=== PATIENT | male | born 1965 | race Caucasian/White ===

== ENCOUNTER 2021-08-13 23:09 | Emergency (ER) | END 2021-08-13 23:28 | disposition left against medical advice (07) | LOC: M ED 23:09 | DX: Z53.21 Procedure and treatment not carried out due to patient leaving prior to being seen by health care provider (principal) ==

== ENCOUNTER 2021-09-08 09:46 | Emergency (ER) | payer MEDICARE, MEDICAID ==
[~2021-09-08] VITALS: Ht 182.9 cm; Wt 72.3 kg
[2021-09-08 09:47] VITALS: BP 174/132
[2021-09-08] MEDS ORDERED: KETOROLAC 30 MG/ML 1ML VIAL IV ONE (11:10)
[2021-09-08 11:30] LABS: BASO # 0.1 10^3/uL (0.0-0.2); BASO % 0.8 % (0.0-1.0); EOS # 0.3 10^3/uL (0.0-0.5); EOS % 3.6 % (0.0-3.0); HEMATOCRIT 46.1 % (42.0-52.0); HEMOGLOBIN 16.2 g/dl (13.5-17.5); LYMPH % 24.4 % (24.0-44.0); MEAN CORPUSCULAR HEMOGLOBIN 36.6 pg (27.0-33.0); MEAN CORPUSCULAR HGB CONC 35.1 g/dl (32.0-36.5); MEAN CORPUSCULAR VOLUME 104.1 fl (80.0-96.0); MONO # 0.6 10^3/uL (0.0-0.8); MONO % 6.8 % (2.0-8.0); NEUTROPHILS # 5.2 10^3/uL (1.5-8.5); NEUTROPHILS % 63.2 % (36.0-66.0); PLATELET COUNT, AUTOMATED 333 10^3/uL (150-450); RED BLOOD COUNT 4.43 10^6/uL (4.30-6.10); WHITE BLOOD COUNT 8.2 10^3/uL (4.0-10.0)
[2021-09-08 11:52] LABS: BLOOD UREA NITROGEN 7 MG/DL (7-18); CALCIUM LEVEL 9.8 MG/DL (8.5-10.1); CARBON DIOXIDE LEVEL 26 MEQ/L (21-32); CHLORIDE LEVEL 106 MEQ/L (98-107); GLOMERULAR FILTRATION RATE > 60.0 (>56); GLUCOSE, FASTING 100 MG/DL (70-100); SODIUM LEVEL 139 MEQ/L (136-145)
[2021-09-08 11:56] LABS: CK-MB VALUE MASS 2.2 NG/ML (<3.6)
== END 2021-09-08 12:25 | disposition left against medical advice (07) ==
LOC: M ED 09:46
DX: J44.9 Chronic obstructive pulmonary disease, unspecified (principal); I10 Essential (primary) hypertension; F10.10 Alcohol abuse, uncomplicated; Z88.0 Allergy status to penicillin; Z53.21 Procedure and treatment not carried out due to patient leaving prior to being seen by health care provider
CPT/HCPCS: 71101; 80048; 82077; 82550; 82553; 84484; 85025; 93005; 99283; J1885

== ENCOUNTER 2022-04-02 21:15 | Emergency (ER) | payer MEDICARE, MEDICAID ==
[~2022-04-02] VITALS: Ht 185.4 cm; Wt 67.0 kg
[2022-04-02 21:16] VITALS: BP 147/95
== END 2022-04-02 22:50 | disposition left against medical advice (07) ==
LOC: M ED 21:15
DX: Z53.21 Procedure and treatment not carried out due to patient leaving prior to being seen by health care provider (principal)

== ENCOUNTER 2022-04-12 23:12 | Emergency (ER) | payer MEDICARE, MEDICAID ==
[~2022-04-12] VITALS: Ht 185.4 cm; Wt 65.2 kg
[2022-04-12 23:35] VITALS: BP 142/102
[2022-04-13 01:10] LABS: CK-MB VALUE MASS 1.1 NG/ML (<3.6); MB/CK RELATIVE INDEX 1.36 (< OR =4)
== END 2022-04-13 00:05 | disposition left against medical advice (07) ==
LOC: M ED 23:12
DX: Z53.21 Procedure and treatment not carried out due to patient leaving prior to being seen by health care provider (principal)

== ENCOUNTER → 2022-06-11 | Outpatient (CLI) | payer MEDICARE, MEDICAID | LOC: M PLAIMG 10:47 | PROVIDERS: ATTEND Physician Assistant | DX: S22.43XD Multiple fractures of ribs, bilateral, subsequent encounter for fracture with routine healing (principal); M54.50 Low back pain, unspecified ==